=== PATIENT | male | born 1955 | race Caucasian/White ===

== ENCOUNTER 2017-08-12 09:03 | Day surgery (SDC) | payer BC, OTHER ==
[2017-08-12] MEDS ORDERED: Lidocaine 2% 100 MG/5 ML Syringe IVPUSH ONE (09:04)
[2017-08-12] MEDS ORDERED: fentaNYL 100 MCG/2 ML SDV IV ONE (09:04)
[2017-08-12] MEDS ORDERED: Midazolam 1 MG/ML 2 ML SDV IV ONE (09:04)
[2017-08-12] MEDS ORDERED: Propofol 200 MG/20 ML SDV IV ONE (09:04)
[2017-08-12] MEDS ORDERED: Lactated Ringers 1,000 ML IV SCH (09:15)
[2017-08-12] MEDS ORDERED: Simethicone Drops 40 MG/0.6 ML 30 ML Bottle ONE (11:47)
--- NOTE | 2017-08-12 12:05 | PCM.OPNOTE ---
- General Post-Op/Procedure Note Date of Surgery/Procedure: 08/12/17 Operative Procedure(s): c scope with bx Findings: colon polyp cecum, desc, sigmoid and rectum Pre Op Diagnosis: hx of colon polyps Post-Op Diagnosis: colon polyps. cecum, desc, sigmoid and rectum. sigmoid diverticulosis Anesthesia Technique: MAC Primary Surgeon: Bernard James Anesthesia Provider: Clark Haji Pathology: colon polyp cecum, desc, sigmoid and rectum Complications: None Condition: Good Free Text/Narrative:: see dictation
--- NOTE | 2017-08-12 15:53 | OR ---
DATE OF OPERATION: 08/12/2017 SURGEON: Bernard James MD PROCEDURES PERFORMED: Colonoscopy with cold forceps biopsy. PREOPERATIVE DIAGNOSIS: Personal history of colon polyps. POSTOPERATIVE DIAGNOSES: Polyp of the cecum, descending, sigmoid and rectum, as well as sigmoid diverticulosis. INDICATIONS FOR PROCEDURE: This is a 62-year-old white male who presents for a 5-year followup with a personal history of colon polyps. DESCRIPTION OF PROCEDURE: After an excellent IV sedation was administered, digital rectal exam was performed. No marked abnormality was noted. Flexible colonoscope was inserted and advanced to the cecum. The following findings were noted. Ascending colon, at the cecum, a small 2-mm lesion, biopsied with cold biopsy forceps and sent for permanent. Transverse colon was unremarkable. Descending colon, polypoid lesion, biopsied with cold biopsy forceps and sent for permanent. Sigmoid colon, small polypoid lesion, biopsied and sent for permanent. Some mild diverticulosis was noted as well. Rectum, rectal polyp identified, biopsied and sent for permanent. Colon was deflated. The scope was removed. The patient tolerated the procedure well. Results by letter. /[id number] /MODL
== END 2017-08-12 13:01 | disposition home or self-care (01) ==
LOC: FB.SDS 09:03
PROVIDERS: ATTEND Surgery
PROC: 0DBH8ZX Excision of Cecum, Via Natural or Artificial Opening Endoscopic, Diagnostic (ICD-10-PCS; principal; 2017-08-12)
PROC: 0DBN8ZX Excision of Sigmoid Colon, Via Natural or Artificial Opening Endoscopic, Diagnostic (ICD-10-PCS; 2017-08-12)
PROC: 0DBP8ZX Excision of Rectum, Via Natural or Artificial Opening Endoscopic, Diagnostic (ICD-10-PCS; 2017-08-12)
PROC: 0DBM8ZX Excision of Descending Colon, Via Natural or Artificial Opening Endoscopic, Diagnostic (ICD-10-PCS; 2017-08-12)
DX: Z08 Encounter for follow-up examination after completed treatment for malignant neoplasm (principal); D12.7 Benign neoplasm of rectosigmoid junction; D12.0 Benign neoplasm of cecum; D12.4 Benign neoplasm of descending colon; D12.5 Benign neoplasm of sigmoid colon; I10 Essential (primary) hypertension; Z86.010 Personal history of colon polyps; Z79.82 Long term (current) use of aspirin; Z79.899 Other long term (current) drug therapy; K21.9 Gastro-esophageal reflux disease without esophagitis; H91.90 Unspecified hearing loss, unspecified ear; F17.210 Nicotine dependence, cigarettes, uncomplicated
CPT/HCPCS: 45380; 88305; A9270; J2250; J2704; J3010; J7120

== ENCOUNTER 2023-04-01 07:23 | Day surgery (SDC) | payer MEDICARE, OTHER ==
[2023-04-01] MEDS ORDERED: Midazolam 1 MG/ML 2 ML SDV IV ONE (07:24)
[2023-04-01] MEDS ORDERED: Glycopyrrolate 0.2 MG/ML 5 ML MDV IV ONE (07:24)
[2023-04-01] MEDS ORDERED: Phenylephrine 0.5% Nasal Spray 15 ML Bot NAS ONE (07:24)
[2023-04-01] MEDS ORDERED: Propofol 200 MG/20 ML SDV IV ONE (07:24)
[2023-04-01] MEDS ORDERED: Albuterol 6.7 GM Inhaler INH ONE (07:24)
[2023-04-01] MEDS ORDERED: Lidocaine 2% 100 MG/5 ML Syringe IVPUSH ONE (07:24)
[2023-04-01] MEDS ORDERED: Sodium Chloride 0.9% 10 ML Syringe FLUSH PRN (07:30)
[2023-04-01] MEDS: Lactated Ringers 1,000 ML IV SCH (08:18)
[2023-04-01] MEDS: Simethicone Drops 40 MG/0.6 ML 30 ML Bottle PO ONE (09:40)
== END 2023-04-01 11:20 | disposition home or self-care (01) ==
LOC: FB.SDS 07:23
PROVIDERS: ATTEND Surgery
DX: Z12.11 Encounter for screening for malignant neoplasm of colon (principal); D12.6 Benign neoplasm of colon, unspecified; K57.30 Diverticulosis of large intestine without perforation or abscess without bleeding; I10 Essential (primary) hypertension; E78.5 Hyperlipidemia, unspecified; K21.9 Gastro-esophageal reflux disease without esophagitis; F17.210 Nicotine dependence, cigarettes, uncomplicated; Z79.82 Long term (current) use of aspirin; Z79.899 Other long term (current) drug therapy
CPT/HCPCS: 88305; A9270-GY; J2250; J2704; J3490; J7120